=== PATIENT | male | born 1995 | race African-American/Black ===

== ENCOUNTER 2020-05-08 13:08 | Emergency (ER) | payer OTHER ==
[2020-05-08] MEDS ORDERED: HYDROCODONE/APAP 5/325 MG TAB ONE (13:29)
[2020-05-08] MEDS ORDERED: DIAZEPAM 5 MG TABLET ONE (13:30)
--- NOTE | 2020-05-08 14:17 | RAD REPORT ---
EXAM DESCRIPTION: US - Scrotum Testicles - 05/08/2020 2:01 pm CLINICAL HISTORY: Testicular pain COMPARISON: None FINDINGS: Right testicle measures 5.2 x 2.6 x 3.3 centimeters. Echotexture is inhomogeneous. . No bl ood flow Left testicle measures 4.3 x 2 x 3.2 centimeters. Echotexture is homogeneous. Normal blood flow The epididymides are normal in size and echotexture. Normal blood flow is seen. IMPRESSION: Right testicular torsion. Preliminary report was provided to the referring provider approximately 2 p.m. May 08, 2020
--- NOTE | 2020-05-08 15:57 | ER ---
Nurse's Notes [facility] Name: Anurag Wu Age: 24 yrs Sex: Male : 1995 Arrival Date: 05/08/2020 Time: 13:14 Bed 13 Private MD: Diagnosis: Torsion of testis-right Presentation: 05/08 13:15 Chief complaint: Patient states: Right testicle pain since 1 am. Slight nausea. No ll1 dysuria or fever. Coronavirus screen: Proceed with normal triage. Patient denies a cough. Patient denies shortness of breath or difficulty breathing. Patient denies measured and/or subjective temperature greater than 100.4F prior to today's visit. Patient denies travel on a cruise ship or to a country the [facility] currently lists as an affected area. Patient denies contact with known and/or suspected case of COVID-19. Ebola Screen: Patient denies travel to an Ebola-affected area in the 21 days before illness onset. Initial Sepsis Screen: Does the patient meet any 2 criteria? No. Patient's initial sepsis screen is negative. Risk Assessment: Do you want to hurt yourself or someone else? Patient reports no desire to harm self or others. Onset of symptoms was May 08, 2020. 13:15 Method Of Arrival: Ambulatory ll1 13:15 Acuity: RAJENDRA 3 ll1 13:35 Initial Sepsis Screen: Does the patient have a suspected source of infection? Yes: ll1 Other: testes pain. Historical: - Allergies: 13:16 No Known Allergies; ll1 - PSHx: 13:16 None; ll1 - Immunization history:: Adult Immunizations up to date. - Social history:: Patient/guardian denies using alcohol, street drugs, tobacco products, Smoking status: Patient denies any tobacco usage or history of. Screenin:35 Abuse screen: Denies threats or abuse. Nutritional screening: No deficits noted. ll1 Tuberculosis screening: No symptoms or risk factors identified. Fall Risk None identified. Total Wade Fall Scale indicates No Risk (0-24 pts). Assessment: 13:34 General: Appears in no apparent distress. Behavior is calm, cooperative, appropriate ll1 for age. Pain: Complains of pain in r testes Pain currently is 8 out of 10 on a pain scale. Quality of pain is described as aching, Pain began 1 day ago. Is continuous, Alleviated by. Neuro: No deficits noted. Cardiovascular: No deficits noted. Respiratory: No deficits noted. GI: Abdomen is flat, Bowel sounds present X 4 quads. Abd is soft and non tender X 4 quads. Reports nausea. : Reports Scrotal pain: sudden onset Denies burning with urination. 14:30 Reassessment: Patient appears in no apparent distress at this time. No changes from ll1 previously documented assessment. Patient and/or family updated on plan of care and expected duration. Pain level reassessed. Patient is alert, oriented x 3, equal unlabored respirations, skin warm/dry/pink. 15:30 Reassessment: Patient appears in no apparent distress at this time. No changes from ll1 previously documented assessment. Patient and/or family updated on plan of care and expected duration. Pain level reassessed. Patient is alert, oriented x 3, equal unlabored respirations, skin warm/dry/pink. 16:30 Reassessment: Patient appears in no apparent distress at this time. No changes from ll1 previously documented assessment. Patient and/or family updated on plan of care and expected duration. Pain level reassessed. Patient is alert, oriented x 3, equal unlabored respirations, skin warm/dry/pink. Vital Signs: 13:15 BP 117 / 65; Pulse 57; Resp 16; Temp 98.6; Pulse Ox 100% ; Pain 5/10; ll1 16:30 BP 120 / 69; Pulse 73; Resp 17; Temp 98.4; Pulse Ox 98% ; Pain 4/10; ll1 ED Course: 13:14 Patient arrived in ED. ss 13:15 Angel Kat, CARMEN is Primary Nurse. ll1 13:16 Triage completed. ll1 13:16 Pebbles Mckeon FNP-C is PHCP. snw 13:16 Jeff Dee MD is Attending Physician. snw 13:17 Arm band placed on. ll1 13:35 Patient has correct armband on for positive identification. Bed in low position. Call ll1 light in reach. Side rails up X 1. 14:01 US Scrotum Testicles In Process Unspecified. EDMS 14:02 Ultrasound completed. Patient tolerated well. Notified [employer]VON noriega. sg3 14:13 Managed Care contacted to initiate transfer, was advised that they will call with em1 further instructions. 16:04 Report given to Bee Diaz at [facility] ER. 1 16:32 No provider procedures requiring assistance completed. Patient did not have IV access ll1 during this emergency room visit. Administered Medications: 13:25 Drug: Flint 5 mg-325 mg 1 tabs Route: PO; ll1 16:01 Follow up: Response: No adverse reaction; RASS: Alert and Calm (0) 13:25 Drug: Valium 5 mg Route: PO; ll1 16:06 Follow up: Response: No adverse reaction ll1 Outcome: 15:56 ER care complete, transfer ordered by . hola 16:31 Patient left the ED. ll1 16:31 Transferred by ground EMS to other acute care facility: [facility]. 1 16:32 Condition: stable ll1 16:32 Instructed on the need for transfer, Demonstrated understanding of instructions. Signatures: Dispatcher [employer] EDMS Pebbles Mckeon, CARMELITA-C LINOTYPER-Faustino Horne em1 Gita Resendez, CARMEN RN Nedra Cordero [facility] Angel Kat, CARMEN RN 1
--- NOTE | 2020-05-08 15:57 | EDPHYS ---
Physician Documentation [facility] Name: Anurag Wu Age: 24 yrs Sex: Male : 1995 Arrival Date: 05/08/2020 Time: 13:14 Bed 13 Private MD: ED Physician Jeff Dee HPI: 05/08 14:07 This 24 yrs old Male presents to ER via Ambulatory with complaints of Testicular Pain. snw 14:07 The patient presents with swelling, that is moderate, that is severe, of the right snw testicle, tenderness. Onset: The symptoms/episode began/occurred suddenly, at 01:00. Associated signs and symptoms: Pertinent positives: sudden right testicle pain at 10/10 at 0100. Pain began radiating to right hip. Managed care sent pt to ED.. Severity of symptoms: At their worst the symptoms were moderate, severe. The patient has not experienced similar symptoms in the past. It is unknown whether or not the patient has recently seen a physician. right testicle pain constant since it began. Historical: - Allergies: 13:16 No Known Allergies; ll1 - PSHx: 13:16 None; ll1 - Immunization history:: Adult Immunizations up to date. - Social history:: Patient/guardian denies using alcohol, street drugs, tobacco products, Smoking status: Patient denies any tobacco usage or history of. ROS: 14:11 Constitutional: Negative for fever, chills, and weight loss, Eyes: Negative for injury, snw pain, redness, and discharge, ENT: Negative for injury, pain, and discharge, Neck: Negative for injury, pain, and swelling, Cardiovascular: Negative for chest pain, palpitations, and edema, Respiratory: Negative for shortness of breath, cough, wheezing, and pleuritic chest pain, Abdomen/GI: Negative for abdominal pain, nausea, vomiting, diarrhea, and constipation, Back: Negative for injury and pain, MS/Extremity: Negative for injury and deformity, Skin: Negative for injury, rash, and discoloration, Neuro: Negative for headache, weakness, numbness, tingling, and seizure, Psych: Negative for depression, anxiety, suicide ideation, homicidal ideation, and hallucinations. 14:11 : Positive for testicular pain of the right testicle. Exam: 14:12 Constitutional: This is a well developed, well nourished patient who is awake, alert, snw and in no acute distress. Head/Face: Normocephalic, atraumatic. Eyes: Pupils equal round and reactive to light, extra-ocular motions intact. Lids and lashes normal. Conjunctiva and sclera are non-icteric and not injected. Cornea within normal limits. Periorbital areas with no swelling, redness, or edema. ENT: Nares patent. No nasal discharge, no septal abnormalities noted. Tympanic membranes are normal and external auditory canals are clear. Oropharynx with no redness, swelling, or masses, exudates, or evidence of obstruction, uvula midline. Mucous membranes moist. Neck: Trachea midline, no thyromegaly or masses palpated, and no cervical lymphadenopathy. Supple, full range of motion without nuchal rigidity, or vertebral point tenderness. No Meningismus. Chest/axilla: Normal chest wall appearance and motion. Nontender with no deformity. No lesions are appreciated. 14:12 Respiratory: Lungs have equal breath sounds bilaterally, clear to auscultation and percussion. No rales, rhonchi or wheezes noted. No increased work of breathing, no retractions or nasal flaring. Abdomen/GI: Soft, non-tender, with normal bowel sounds. No distension or tympany. No guarding or rebound. No evidence of tenderness throughout. Back: No spinal tenderness. No costovertebral tenderness. Full range of motion. Male : Normal genitalia with no discharge or lesions. right testicle high riding, edematous, tender, no cremasteric response Skin: Warm, dry with normal turgor. Normal color with no rashes, no lesions, and no evidence of cellulitis. MS/ Extremity: Pulses equal, no cyanosis. Neurovascular intact. Full, normal range of motion. Neuro: Awake and alert, GCS 15, oriented to person, place, time, and situation. Cranial nerves II-XII grossly intact. Motor strength 5/5 in all extremities. Sensory grossly intact. Cerebellar exam normal. Normal gait. Psych: Awake, alert, with orientation to person, place and time. Behavior, mood, and affect are within normal limits. 14:12 Cardiovascular: Rate: bradycardic, Rhythm: regular, Pulses: no pulse deficits are appreciated, Heart sounds: murmur, grade 3 over 6, Edema: is not appreciated. Vital Signs: 13:15 BP 117 / 65; Pulse 57; Resp 16; Temp 98.6; Pulse Ox 100% ; Pain 5/10; ll1 16:30 BP 120 / 69; Pulse 73; Resp 17; Temp 98.4; Pulse Ox 98% ; Pain 4/10; ll1 MDM: 13:18 Patient medically screened. snw 14:07 Data reviewed: vital signs, nurses notes, EKG, radiologic studies. Response to snw treatment: the patient's symptoms have mildly improved after treatment. ED course: last po at 1300. 14:13 ED course: initiate transfer. snw 15:52 Physician consultation: Dr Armando was called at 15:40, was contacted at 15:45, regarding snw regarding transfer, as [facility] care unable to find bed placement for transfer., Dr. Armando kindly accepts pt in transfer.. 05/08 13:17 Order name: US Scrotum Testicles; Complete Time: 14:17 snw 05/08 14:06 Order name: NPO; Complete Time: 16:04 snw 05/08 14:06 Order name: EKG; Complete Time: 14:06 snw 05/08 14:06 Order name: EKG - Nurse/Tech; Complete Time: 16:06 snw Administered Medications: 13:25 Drug: Tennga 5 mg-325 mg 1 tabs Route: PO; ll1 16:01 Follow up: Response: No adverse reaction; RASS: Alert and Calm (0) ss 13:25 Drug: Valium 5 mg Route: PO; ll1 16:06 Follow up: Response: No adverse reaction ll1 Disposition: 19:12 Co-signature as Attending Physician, Jeff Dee MD. ma2 Disposition: 05/08/20 15:56 Transfer ordered to Other Acute Care Facility. Diagnosis is Torsion of testis - right. - Reason for transfer: Higher level of care. - Accepting physician is Dr. Armando. - Condition is Stable. - Problem is new. - Symptoms are unchanged. Signatures: Dispatcher [employer] EDMS Pebbles Mckeon, CARMELITA-C SMASH PIECER-Csnw Jeff Dee MD MD ma2 Angel Kat RN RN 1 Gita Resendez RN ss Corrections: (The following items were deleted from the chart) 16:31 15:56 05/08/2020 15:56 Transfer ordered to Other Acute Care Facility. Diagnosis is ll1 Torsion of testis - right. Reason for transfer: Higher level of care. Accepting physician is Dr. Armando. Condition is Stable. Problem is new. Symptoms are unchanged. snw
[2020-05-08 16:41] VITALS: BP 120/69; TEMP 98.4; O2SAT 98
== END 2020-05-08 16:31 ==
LOC: ER 13:08
DX: N44.00 Torsion of testis, unspecified (principal)
CPT/HCPCS: 76870; 93005; 99285